=== PATIENT | female | born 1960 | race Caucasian/White ===

== ENCOUNTER 2022-02-17 22:40 | Emergency (ER) | payer BC, SELFPAY ==
[~2022-02-17] VITALS: Ht 167.6 cm; Wt 91.3 kg
[2022-02-17] MEDS ORDERED: METOPROLOL 5 MG/5 ML VIAL IV PRN (23:10)
[2022-02-17] MEDS ORDERED: METOPROLOL TART 25 MG TABLET PO ONE (23:10)
[2022-02-17 23:20] VITALS: BP 121/87
[2022-02-17] MEDS ORDERED: MORPHINE 4 MG/ML 1ML VIAL/SYRINGE IV PRN (23:25)
[2022-02-17] MEDS ORDERED: ONDANSETRON 4MG/2ML VIAL IV ONE (23:25)
[2022-02-17 23:44] LABS: BASO # 0.1 10^3/uL (0.0-0.2); BASO % 0.7 % (0.0-1.0); EOS # 0.2 10^3/uL (0.0-0.5); EOS % 2.2 % (0.0-3.0); HEMATOCRIT 40.6 % (36.0-47.0); HEMOGLOBIN 13.8 g/dl (12.0-15.5); LYMPH # 2.6 10^3/uL (1.5-5.0); LYMPH % 23.6 % (24.0-44.0); MEAN CORPUSCULAR HEMOGLOBIN 32.9 pg (27.0-33.0); MEAN CORPUSCULAR VOLUME 96.7 fl (80.0-96.0); MONO # 0.9 10^3/uL (0.0-0.8); MONO % 8.3 % (2.0-8.0); NEUTROPHILS # 7.2 10^3/uL (1.5-8.5); NEUTROPHILS % 64.7 % (36.0-66.0); PLATELET COUNT, AUTOMATED 217 10^3/uL (150-450); WHITE BLOOD COUNT 11.1 10^3/uL (4.0-10.0)
[2022-02-17 23:54] LABS: BLOOD UREA NITROGEN 20 MG/DL (7-18); CALCIUM LEVEL 8.7 MG/DL (8.8-10.2); CARBON DIOXIDE LEVEL 24 MEQ/L (21-32); CHLORIDE LEVEL 109 MEQ/L (98-107); CREATININE FOR GFR 0.71 MG/DL (0.55-1.30); GLOMERULAR FILTRATION RATE > 60.0 (>45); GLUCOSE, FASTING 244 MG/DL (70-100); POTASSIUM SERUM 3.5 MEQ/L (3.5-5.1); SODIUM LEVEL 143 MEQ/L (136-145)
[2022-02-18 00:03] LABS: MB/CK RELATIVE INDEX 2.06 (< OR =4)
[2022-02-18] MEDS ORDERED: ISOVUE-370 76% 100ML VIAL As Ordered ONE (00:05)
[2022-02-18] MEDS ORDERED: LEVO75TA4 PO (00:31)
[2022-02-18] MEDS ORDERED: METO25TA4 PO (00:31)
[2022-02-18] MEDS ORDERED: ASPI325T57 PO (00:33)
[2022-02-18] MEDS ORDERED: MAGN200T PO (00:33)
[2022-02-18] MEDS ORDERED: COQ-100C5 PO (00:33)
[2022-02-18] MEDS ORDERED: LIPI20TA PO (00:33)
[2022-02-18] MEDS ORDERED: OXYC-517 PO (00:34)
[2022-02-18] MEDS ORDERED: CYCL5TAB PO (00:34)
[2022-02-18 01:23] LABS: CK-MB VALUE MASS 2.7 NG/ML (<3.6); MB/CK RELATIVE INDEX 3.29 (< OR =4)
[2022-02-18 01:31] VITALS: BP 140/58
== END 2022-02-18 01:58 | disposition home or self-care (01) ==
LOC: M ED 22:40
DX: I21.4 Non-ST elevation (NSTEMI) myocardial infarction (principal); I48.91 Unspecified atrial fibrillation; Z53.20 Procedure and treatment not carried out because of patient's decision for unspecified reasons; I51.9 Heart disease, unspecified; F17.200 Nicotine dependence, unspecified, uncomplicated; Z88.0 Allergy status to penicillin; Z88.8 Allergy status to other drugs, medicaments and biological substances; Z91.030 Bee allergy status; Z79.82 Long term (current) use of aspirin; Z79.899 Other long term (current) drug therapy
CPT/HCPCS: 71045; 80048; 82550; 82553; 84484; 85025; 93005; 93041; 94760; 96374; 96375; 99285; J2270; J2405

== ENCOUNTER → 2025-05-10 | Outpatient (CLI) | payer MEDICARE ==
[~2025-05-10] MED LIST: ALPR0.25 PO; ASPI325T57 PO; ATOR40TA75 PO; CARV3.12 PO; CO Q10CA PO; COQ-100C5 PO; CYCL5TAB4 PO; ELIQ5TAB PO; GABA-1172 PO; LEVO50TA5 PO; LEVO75TA4 PO; LIPI20TA PO; MAGN200T PO; METF500T13 PO; METO25TA4 PO; OXYC-517 PO; SOTA160T PO
== END ==
LOC: M ONCR 08:24
PROVIDERS: ATTEND General Practice
DX: C54.1 Malignant neoplasm of endometrium (principal); Z92.29 Personal history of other drug therapy; Z92.3 Personal history of irradiation; Z90.710 Acquired absence of both cervix and uterus; Z90.722 Acquired absence of ovaries, bilateral; Z90.79 Acquired absence of other genital organ(s); F17.210 Nicotine dependence, cigarettes, uncomplicated; Z80.0 Family history of malignant neoplasm of digestive organs; Z88.0 Allergy status to penicillin; Z88.1 Allergy status to other antibiotic agents; Z88.8 Allergy status to other drugs, medicaments and biological substances; Z91.030 Bee allergy status; Z79.01 Long term (current) use of anticoagulants; Z79.84 Long term (current) use of oral hypoglycemic drugs; Z79.890 Hormone replacement therapy; Z79.899 Other long term (current) drug therapy

== ENCOUNTER 2025-06-01 10:37 | Outpatient (RCR) | payer MEDICARE ==
[2025-05-25 14:24] LABS: AMORPHOUS SEDIMENT SMALL (NEGATIVE); APPEARANCE, URINE HAZY (CLEAR); BACTERIA, URINE AUTO 2+ (NEGATIVE); BILIRUBIN, URINE AUTO NEGATIVE (NEGATIVE); BLOOD, URINE BLOOD 1+ (NEGATIVE); GLUCOSE, URINE (UA) AUTO NEGATIVE (NEGATIVE); KETONE, URINE AUTO NEGATIVE (NEGATIVE); LEUKOCYTE ESTERASE, URINE AUTO 3+ (NEGATIVE); MUCUS, URINE SMALL (NEGATIVE); NITRITE, URINE AUTO POSITIVE (NEGATIVE); PROTEIN, URINE AUTO 1+ mg/dL (NEGATIVE); RBC, URINE AUTO 10 /HPF (0-3); SPECIFIC GRAVITY URINE AUTO 1.021 (1.002-1.035); SQUAMOUS EPITHELIAL CELL UR AU 1 /HPF (0-6); UROBILINOGEN, URINE AUTO 4.0 mg/dL (0.0-2.0); WBC, URINE AUTO 118 /HPF (0-3)
[~2025-06-01 10:37] MED LIST changes: +BACTDSTA PO; +ONDA-282 PO
[2025-06-05] MEDS ORDERED: ALPR0.25 PO (11:44)
[2025-06-05] MEDS ORDERED: BUSP10TA PO (11:45)
== END 2025-06-03 ==
LOC: M ONCR 10:37
PROVIDERS: ATTEND General Practice
DX: Z51.0 Encounter for antineoplastic radiation therapy (principal); C54.1 Malignant neoplasm of endometrium

== ENCOUNTER → 2025-06-19 | Outpatient (CLI) | payer MEDICARE ==
[~2025-06-19] MED LIST changes: +BUSP10TA PO; +FLUC100T3 PO; +LIDO30CR18 TOP; +PROHANCE 279.3MG/ML 15ML VIAL As Ordered ONE
== END ==
LOC: M RAD 15:54
PROVIDERS: ATTEND General Practice
DX: C54.1 Malignant neoplasm of endometrium (principal)
CPT/HCPCS: 72197; A9576

== ENCOUNTER 2025-06-25 10:28 | Outpatient (RCR) | payer MEDICARE ==
[2025-06-08 11:37] LABS: APPEARANCE, URINE HAZY (CLEAR); BACTERIA, URINE AUTO NEGATIVE (NEGATIVE); BILIRUBIN, URINE AUTO NEGATIVE (NEGATIVE); BLOOD, URINE BLOOD NEGATIVE (NEGATIVE); GLUCOSE, URINE (UA) AUTO NEGATIVE (NEGATIVE); KETONE, URINE AUTO NEGATIVE (NEGATIVE); LEUKOCYTE ESTERASE, URINE AUTO NEGATIVE (NEGATIVE); NITRITE, URINE AUTO NEGATIVE (NEGATIVE); PROTEIN, URINE AUTO NEGATIVE (NEGATIVE); RBC, URINE AUTO 0 /HPF (0-3); SPECIFIC GRAVITY URINE AUTO 1.019 (1.002-1.035); SQUAMOUS EPITHELIAL CELL UR AU 1 /HPF (0-6); UROBILINOGEN, URINE AUTO 0.2 mg/dL (0.0-2.0); WBC, URINE AUTO 2 /HPF (0-3)
[~2025-06-25 10:28] MED LIST changes: +BACT400T PO; -PROHANCE 279.3MG/ML 15ML VIAL As Ordered ONE
[2025-06-25] MEDS ORDERED: CLOB5CR TOP (11:33)
[2025-06-28] MEDS ORDERED: MESA1000 PR (08:48)
[2025-06-28] MEDS ORDERED: MESA50SU PR (08:51)
== END 2025-07-03 ==
LOC: M ONCR 10:28
PROVIDERS: ATTEND General Practice
DX: Z51.0 Encounter for antineoplastic radiation therapy (principal); C54.1 Malignant neoplasm of endometrium

== ENCOUNTER → 2025-07-10 | Outpatient (CLI) | payer MEDICARE ==
[~2025-07-10] MED LIST changes: +CLOB5CR TOP; +MESA1000 PR; +MESA50SU PR
== END ==
LOC: M ONCR 14:49
PROVIDERS: ATTEND General Practice
DX: C54.1 Malignant neoplasm of endometrium (principal); Z92.3 Personal history of irradiation

== ENCOUNTER → 2025-08-01 | Outpatient (CLI) | payer MEDICARE | LOC: M ONCR 13:07 | PROVIDERS: ATTEND General Practice | DX: C54.1 Malignant neoplasm of endometrium (principal); Z92.21 Personal history of antineoplastic chemotherapy; Z92.3 Personal history of irradiation ==

== ENCOUNTER → 2025-09-04 | Outpatient (CLI) | payer MEDICARE ==
[~2025-09-04] MED LIST changes: +ATIV1TAB7 PO; -BACTDSTA PO; +SULF-8 PO
== END ==
LOC: M ONCR 12:46
PROVIDERS: ATTEND General Practice
DX: C54.1 Malignant neoplasm of endometrium (principal); F99 Mental disorder, not otherwise specified; Z92.21 Personal history of antineoplastic chemotherapy; Z92.3 Personal history of irradiation; Z92.29 Personal history of other drug therapy; F17.200 Nicotine dependence, unspecified, uncomplicated; Z88.0 Allergy status to penicillin; Z88.1 Allergy status to other antibiotic agents; Z88.8 Allergy status to other drugs, medicaments and biological substances; Z91.030 Bee allergy status; Z79.01 Long term (current) use of anticoagulants; Z79.84 Long term (current) use of oral hypoglycemic drugs; Z79.899 Other long term (current) drug therapy

== ENCOUNTER → 2025-09-11 | Outpatient (CLI) | payer MEDICARE | LOC: M PLARAD 07:30 | PROVIDERS: ATTEND General Practice | DX: C54.1 Malignant neoplasm of endometrium (principal) | CPT/HCPCS: 78815; A9552 ==

== ENCOUNTER → 2025-09-12 | Outpatient (CLI) | payer MEDICARE | LOC: M ONCR 10:15 | PROVIDERS: ATTEND General Practice | DX: C54.1 Malignant neoplasm of endometrium (principal); Z92.21 Personal history of antineoplastic chemotherapy; Z92.29 Personal history of other drug therapy; Z92.3 Personal history of irradiation; F17.210 Nicotine dependence, cigarettes, uncomplicated; Z88.0 Allergy status to penicillin; Z88.1 Allergy status to other antibiotic agents; Z88.8 Allergy status to other drugs, medicaments and biological substances; Z91.030 Bee allergy status; Z79.01 Long term (current) use of anticoagulants; Z79.84 Long term (current) use of oral hypoglycemic drugs; Z79.899 Other long term (current) drug therapy ==